=== PATIENT | female | born 1970 | race Caucasian/White ===

== ENCOUNTER 2018-05-13 10:03 | Outpatient (CLI) | payer OTHER | END 2018-05-13 20:22 | disposition home or self-care (01) | LOC: SMA 10:03 | PROVIDERS: ATTEND Family Medicine | DX: Z12.31 Encounter for screening mammogram for malignant neoplasm of breast (principal) | CPT/HCPCS: 77067 ==

== ENCOUNTER 2021-07-09 15:30 | Outpatient (CLI) | payer OTHER | END 2021-07-09 15:40 | disposition home or self-care (01) | LOC: SMA 15:30 | PROVIDERS: ATTEND Family Medicine | DX: Z12.31 Encounter for screening mammogram for malignant neoplasm of breast (principal) | CPT/HCPCS: 77067 ==